=== PATIENT | female | born 1975 | race Caucasian/White ===

== ENCOUNTER 2016-08-27 18:12 | Emergency (ER) | payer MEDICARE, OTHER ==
[~2016-08-27 18:12] MED LIST: AMIT100 PO; ATEN50 PO; BENTYL20 PO; DIL2TAB PO; ESTRACE1 MG PO; KEPPRA500 PO; LEVSINTAB PO; PHENADOZ25 MG RE; VALIUM10 MG PO; ZANTAC150 MG PO; ZONEGRAN PO
== END 2016-08-27 19:12 | disposition home or self-care (01) ==
LOC: ER 18:12
DX: G43.909 Migraine, unspecified, not intractable, without status migrainosus (principal); Z88.1 Allergy status to other antibiotic agents; Z88.5 Allergy status to narcotic agent; Z88.8 Allergy status to other drugs, medicaments and biological substances; Z79.899 Other long term (current) drug therapy
CPT/HCPCS: 96372; 99283; J0595; J1200; J2550